=== PATIENT | female | born 1955 | race Caucasian/White ===

== ENCOUNTER 2016-03-10 10:50 | Emergency (ER) | payer OTHER ==
[~2016-03-10] VITALS: Ht 162.6 cm; Wt 67.1 kg
[2016-03-10] MEDS ORDERED: TRAMADOL HCL E200 MG PO (11:26)
[2016-03-10] MEDS ORDERED: BACLOFEN10 M1 PO (11:26)
[2016-03-10] MEDS ORDERED: DULOXETINE HCL20 MG PO (11:27)
--- NOTE | 2016-03-10 11:45 | ED UPPER/LOWER EXTREMITY COMPL ---
History of Present Illness General Chief Complaint: Lower Extremity Problems Stated Complaint: RT KNEE PAIN Source: patient Exam Limitations: no limitations Vital Signs & Intake/Output Vital Signs & Intake/Output Vital Signs Date Time Temp Pulse Resp B/P Pulse O2 O2 Flow FiO2 Ox Delivery Rate 03/10 1441 100.0 87 20 136/75 100 Room Air 03/10 1127 Room Air Room Air 03/10 1057 97.9 78 20 112/68 98 Room Air Room Air Allergies Coded Allergies: No Known Allergies (03/10/16) Reconcile Medications Baclofen 10 MG TABLET 1 TAB PO TID UNK (Reported) Duloxetine HCl 20 MG CAPSULE.DR 1 CAP PO DAILY DEPRESSION (Reported) Meloxicam (Mobic) 15 MG TABLET 1 TAB PO DAILY PAIN Tramadol HCl (Tramadol HCl ER) 200 MG TAB.ER.24H 1 TAB PO DAILY PAIN ( Reported) Triage Note: PT TO ED WITH C/O PAIN BEHIND RIGHT KNEE SINCE YESTERDAY, WENT TO WORK, THIS AM PAIN IS WORSE. HX CHRONIC MUSCLE SPASMS. Triage Nurses Notes Reviewed? yes Onset: Abrupt Duration: day(s): (2), constant, continues in ED Timing: recent history Pain/Injury Location: Right: Knee. No Modifying Factors: none HPI: 60-year-old female comes into emergency room with pain to her right knee this been going on for the past 2 days. Patient denies any recent falls or trauma. Patient reports that she has a severe pain from when she was trying to stand up or any type of walking. Denies any redness. Denies any calf swelling. Denies any recent travel. Patient took tramadol and Vicodin with minimal relief. Patient reports that the pain improves when she extends her legs and stand straight up. (ABDIRAHMAN BUITRAGO) Past History Travel History Traveled to [place] past 21 day No Medical History Any Pertinent Medical History? see below for history Neurological: migraine EENT: NONE Cardiovascular: NONE Respiratory: NONE Gastrointestinal: NONE Hepatic: NONE Renal: NONE Musculoskeletal: MUSCLES SPASMS Psychiatric: NONE Endocrine: NONE Blood Disorders: NONE Cancer(s): NONE RADIOLOGIC THERAPIST/Reproductive: endometriosis Surgical History Surgical History: non-contributory Psychosocial History What is your primary language Thai Tobacco Use: Never used ETOH Use: denies use Illicit Drug Use: denies illicit drug use Family History Hx Contributory? No (ABDIRAHMAN BUITRAGO) Review of Systems Review of Systems Constitutional: Reports: no symptoms. EENTM: Reports: no symptoms. Respiratory: Reports: no symptoms. Cardiovascular: Reports: no symptoms. Gastrointestinal/Abdominal: Reports: no symptoms. Genitourinary: Reports: no symptoms. Musculoskeletal: Reports: see HPI. Skin: Reports: no symptoms. Neurological/Psychological: Reports: no symptoms. Hematologic/Endocrine: Reports: no symptoms. Immunological: Reports: no symptoms. All Other Systems: Reviewed and Negative (ABDIRAHMAN BUITRAGO) Physical Exam Physical Exam General Appearance: well developed/nourished, mild distress Head: atraumatic Eyes: Bilateral: normal appearance. Ears, Nose, Throat: normal ENT inspection, hearing grossly normal Neck: normal inspection Cardiovascular/Respiratory: no respiratory distress Back: normal inspection Hip Right: normal range of motion Knee Right: point tenderness over right proximal fibula Neurologic/Tendon: normal sensation, normal motor functions, normal tendon functions, responds to pain, no evidence tendon injury, no pulse deficit Skin: intact, normal color, warm/dry Lymphatic: no anterior cervical leonel (ABDIRAHMAN BUITRAGO) Progress Differential Diagnosis: contusion, dislocation, DVT, fracture, gout, septic arthritis, sprain, tendon injury, tendinitis Plan of Care: Orders Procedure Date/time Status Durable Medical Equipment 03/10 1416 Active Diagnostic Imaging: Viewed by Me: Radiology Read. Discussed w/RAD: Radiology Read. Radiology Impression: EXAM TYPE: RAD - XRY-KNEE COMPLETE RIGHT EXAMINATION: XR KNEE, RIGHT CLINICAL INFORMATION: Right knee pain COMPARISON: None TECHNIQUE: AP , lateral, crosstable lateral, and both oblique views of the right knee. FINDINGS: No acute fracture or malalignment. Joint spaces appear well-preserved. No significant degenerative arthritis. There is a small chronic 4 mm calcific fragment at the tip of the fibular styloid which is of uncertain etiology, potentially due to an old avulsion injury or calcific tendinitis. No joint effusion. Enthesopathic spurring is present at the quadriceps tendon insertion. IMPRESSION: 1. No acute osseous abnormalities. 2. Small chronic 4 mm calcific fragment at the tip of the fibular styloid which could be due to an old avulsion injury or calcific tendinitis. DICTATED BY: JOCE SALDAÑA MD DATE/TIME DICTATED: 03/10/161150 BOAT CARPENTER:MELLO DATE/TIME TRANSCRIBED:03/10/161150 , EXAM TYPE: US - US-UNILATERAL VENOUS DOPPLER EXAMINATION: US TRIPLEX LOWER EXTREMITY, RIGHT CLINICAL INFORMATION: Pain. COMPARISON: None. TECHNIQUE: Color- flow triplex imaging with spectral analysis and compression Doppler were performed on the right lower extremity. FINDINGS: Respiratory variation, normal compression and augmented flow are noted throughout the lower extremity. The visualized common femoral vein, proximal greater saphenous vein, femoral vein, profunda femoral vein, popliteal vein and visualized mid calf venous segments show no evidence of deep venous thrombosis. There is no Lyman's cyst. IMPRESSION : Normal triplex scan without evidence of deep venous thrombosis involving the right lower extremity. DICTATED BY: NITHIN PRATER MD DATE/TIME DICTATED:03/10/161338 BOAT CARPENTER:MELLO (ABDIRAHMAN BUITRAGO) Departure Departure Disposition: HOME OR SELF CARE Condition: Stable Clinical Impression Primary Impression: Tendinitis of right knee Referrals: UNKNOWN (PCP/Family) Additional Instructions: Take Mobic as prescribed. Follow-up with orthopedic doctor. Return if any other concerns worsening symptoms. Take Percocet as needed for breakthrough pain. Please go over all results of today's visit with your primary care doctor. Contact your primary care doctor to let them know you were here in the emergency room. There may be nonspecific findings which may not be related to your visit today here in the emergency room but may require further evaluation and chronic monitoring by your primary care doctor. If you had a laceration today the chance of foreign body always remains. You should follow-up with your primary care doctor for recheck in 3-5 days for a wound check. If you had an x-ray done there is a chance that a fracture could have been missed on initial read and you should follow-up with your primary care doctor for repeat x-rays if symptoms persist. If your blood pressure was elevated here in the emergency room please have rechecked by her primary care doctor within the next 48 hours by your primary care doctor. If you were prescribed a narcotic here in the emergency room or any type of controlled substances you're not allowed to drive while taking this medication or operate any type of heavy machinery. Narcotics can make you feel lightheaded dizziness nausea and can cause constipation. You may need to cherry picker operator a stool softener. Thank you for choosing [facility] emergency room. Please return to the emergency room immediately if you have any other concerns worsening of symptoms. Departure Forms: Customer Survey General Discharge Information Prescriptions: Current Visit Scripts Meloxicam (Mobic) 1 TAB PO DAILY #20 TAB Comments 03/10/2016 3:56:28 PM Patient clinically looks well. Patient is nontoxic-appearing. Patient is no apparent distress. No evidence of DVT. Symptoms most consistent with tendinitis. Follow-up with primary care doctor. Return if any other concerns worsening symptoms. Patient seen by Dr. Milian. Return if any other concerns. Patient understands and agrees with plan of care. (ABDIRAHMAN BUITRAGO) PA/[employer]ER[employer] BOAT ASSEMBLY SUPERVISOR Co-Sign Statement Statement: ED Attending supervision documentation- [X] I saw and evaluated the patient. I have also reviewed all the pertinent lab results and diagnostic results. I agree with the findings and the plan of care as documented in the PA's/FIBERGLASS BOAT ASSEMBLY SUPERVISOR's documentation. [] I have reviewed the ED Record and agree with the PA's/FIBERGLASS BOAT ASSEMBLY SUPERVISOR's documentation. [] Additions or exceptions (if any) to the PAs/FIBERGLASS BOAT ASSEMBLY SUPERVISOR's note and plan are summarized below: [] (MABEL BALL,BANDAR Caal) Procedures Splinting Location: right knee Manual Alignment Performed: No Pre-Made Type: knee imobilizer Splint Applied By: splint applied by me Pre-Proc Neuro Vasc Exam: normal Post-Proc Neuro Vasc Exam: normal (ABDIRAHMAN BUITRAGO)
--- NOTE | 2016-03-10 11:57 | RADIOLOGY REPORT ---
EXAMINATION: XR KNEE, RIGHT CLINICAL INFORMATION: Right knee pain COMPARISON: None TECHNIQUE: AP, lateral, crosstable lateral, and both oblique views of the right knee. FINDINGS: No acute fracture or malalignment. Joint spaces appear well-preserved. No significant degenerative arthritis. There is a small chronic 4 mm calcific fragment at the tip of the fibular styloid which is of uncertain etiology, potentially due to an old avulsion injury or calcific tendinitis. No joint effusion. Enthesopathic spurring is present at the quadriceps tendon insertion. IMPRESSION: 1. No acute osseous abnormalities. 2. Small chronic 4 mm calcific fragment at the tip of the fibular styloid which could be due to an old avulsion injury or calcific tendinitis.
--- NOTE | 2016-03-10 13:44 | ULTRASOUND REPORT ---
EXAMINATION: US TRIPLEX LOWER EXTREMITY, RIGHT CLINICAL INFORMATION: Pain. COMPARISON: None. TECHNIQUE: Color-flow triplex imaging with spectral analysis and compression Doppler were performed on the right lower extremity. FINDINGS: Respiratory variation, normal compression and augmented flow are noted throughout the lower extremity. The visualized common femoral vein, proximal greater saphenous vein, femoral vein, profunda femoral vein, popliteal vein and visualized mid calf venous segments show no evidence of deep venous thrombosis. There is no Lyman's cyst. IMPRESSION: Normal triplex scan without evidence of deep venous thrombosis involving the right lower extremity.
[2016-03-10] MEDS ORDERED: MOBIC15 M1 PO (14:17)
[2016-03-10 14:41] VITALS: BP 136/75
== END 2016-03-10 15:38 ==
LOC: ERH 10:50
DX: M76.9 Unspecified enthesopathy, lower limb, excluding foot (principal)
CPT/HCPCS: 73562-RT; 96372; J1885